=== PATIENT | female | born 1990 | race Caucasian/White ===

== ENCOUNTER 2018-10-12 13:49 | Emergency (ER) | payer OTHER ==
[~2018-10-12] VITALS: Ht 160 cm; Wt 65.8 kg
[2018-10-12 14:01] VITALS: BP_SYST 126
--- NOTE | 2018-10-12 14:10 | NUR ---
Patient to ER bed 8 to gown for evaluation. Side rails up.
--- NOTE | 2018-10-12 14:15 | NUR ---
WILLIE Thorne at bedside examining patient.
--- NOTE | 2018-10-12 14:25 | NUR ---
Xray at bedside
[2018-10-12] MEDS: HYDROcodone/ACETAMIN 5-325 MG TAB (NORCO/ VICODIN) PO ONE (14:40)
--- NOTE | 2018-10-12 14:40 | NUR ---
Pt medicated pt tolerated well.
[2018-10-12 15:30] VITALS: BP_SYST 126
--- NOTE | 2018-10-12 15:30 | NUR ---
Patient given written and verbal discharge instructions and verbalizes understanding. ER MD discussed with patient the results and treatment provided. Patient in stable condition. ID arm band removed. Rx of motrin given. Patient educated on pain management and to follow up with PMD. Pain Scale 2. Opportunity for questions provided and answered. Medication side effect fact sheet provided.
== END 2018-10-12 15:30 | disposition home or self-care (01) ==
LOC: SED 13:49
DX: S93.401A Sprain of unspecified ligament of right ankle, initial encounter (principal); R03.0 Elevated blood-pressure reading, without diagnosis of hypertension; W14.XXXA Fall from tree, initial encounter; Y93.89 Activity, other specified; Y92.89 Other specified places as the place of occurrence of the external cause; Y99.8 Other external cause status
CPT/HCPCS: 81025; 99283

== ENCOUNTER 2018-10-15 10:47 | Emergency (ER) | payer OTHER ==
[~2018-10-15] VITALS: Ht 160 cm; Wt 68.0 kg
[2018-10-15 10:51] VITALS: BP_SYST 134
[2018-10-15] MEDS ORDERED: HYDROcodone/ACETAMIN 5-325 MG TAB (NORCO/ VICODIN) PO ONE (11:30)
[2018-10-15 12:20] VITALS: BP_SYST 134
== END 2018-10-15 12:20 | disposition home or self-care (01) ==
LOC: SED 10:47
DX: S93.401D Sprain of unspecified ligament of right ankle, subsequent encounter (principal); W10.9XXA Fall (on) (from) unspecified stairs and steps, initial encounter; Y93.89 Activity, other specified; Y92.89 Other specified places as the place of occurrence of the external cause; Y99.8 Other external cause status
CPT/HCPCS: 99283

== ENCOUNTER 2018-11-10 20:04 | Emergency (ER) | payer OTHER ==
[~2018-11-10] VITALS: Ht 160 cm; Wt 68.0 kg
[2018-11-10 20:27] VITALS: BP_SYST 144
[2018-11-10] MEDS ORDERED: LORazepam 2 MG/ML VIAL (FOR ER USE) IVP ONE (20:45)
[2018-11-10] MEDS ORDERED: NACL 0.9% 1,000 ML IV ONE (20:45)
[2018-11-10 21:19] LABS: BASOPHILS # (AUTO) 0.1 K/uL (0.0-0.2); BASOPHILS % (AUTO) 0.7 % (0.0-2.0); EOSINOPHILS # (AUTO) 0.1 K/uL (0.0-0.4); HEMATOCRIT 42.4 % (36-48); LYMPHOCYTES # (AUTO) 2.1 K/uL (1.0-5.5); LYMPHOCYTES % (AUTO) 30.5 % (20.5-51.5); MEAN CORPUSCULAR HEMOGLOBIN 33 pg (27-31); MEAN CORPUSCULAR HGB CONC 35 % (32-36); MEAN CORPUSCULAR VOLUME 92 fL (79.0-98.0); MONOCYTES # (AUTO) 0.5 K/uL (0.0-1.0); MONOCYTES % (AUTO) 7.2 % (1.7-9.3); NEUTROPHILS # (AUTO) 4.2 K/uL (1.8-7.7); NEUTROPHILS % (AUTO) 60.6 % (40.0-70.0); PLATELET COUNT (AUTO) 199 K/uL (130-430); RED BLOOD CELL COUNT(AUTO) 4.62 MIL/uL (4.2-6.2); RED CELL DISTRIBUTION WIDTH 13.5 % (9.0-15.0)
[2018-11-10 21:33] LABS: CALCIUM 9.3 mg/dL (8.4-11.0); CREATININE 0.76 mg/dL (0.55-1.30); POTASSIUM 3.7 mmol/L (3.5-5.1)
[2018-11-10 22:25] VITALS: BP_SYST 138
== END 2018-11-10 22:25 | disposition home or self-care (01) ==
LOC: SED 20:04
DX: F10.239 Alcohol dependence with withdrawal, unspecified (principal); R03.0 Elevated blood-pressure reading, without diagnosis of hypertension
CPT/HCPCS: 36415; 80048; 85025; 96374; 99283; J2060; J7030

== ENCOUNTER 2019-08-07 10:12 | Inpatient (IN) | payer OTHER ==
[~2019-08-07] VITALS: Ht 160 cm; Wt 79.4 kg
[2019-08-07 10:39] VITALS: BP_SYST 131
--- NOTE | 2019-08-07 11:30 | NUR ---
Patient ambulated to the bathroom with a steady gait. Urine specimen collected and dropped off at the lab. Urine dip and preg done.
--- NOTE | 2019-08-07 11:39 | NUR ---
Patient to ER bed 05 to gown for evaluation. Side rails up.
--- NOTE | 2019-08-07 11:41 | NUR ---
Patient arrived in the ED c/o burning, frequency, cramping and back pain and pelvic pressure that started yesterday. Patient has already finished 2 courses of antibiotic. Patient denied any chest pain or shortness of breath. Denied any fevers, chills, nausea or vomiting. Patient is alert and oriented x4, respirations even and unlabored, speaking in full sentences, and ambulating with a steady gait. VSS, pain level 6/10. Informed of the approximate wait time. Instructed to notify ED staff for any changes in condition or worsening of symptoms. Patient verbalized understanding.
[2019-08-07] MEDS ORDERED: NACL 0.9% 1,000 ML IV ONE ×2 (11:59→13:30)
--- NOTE | 2019-08-07 12:05 | NUR ---
ER Dr. Mejias at bedside examining patient.
--- NOTE | 2019-08-07 12:18 | NUR ---
fire control technician at bedside collecting blood specimen as ordered by Dr. Mejias. Patient tolerated the procedure well.
[2019-08-07 12:28] LABS: BILIRUBIN,URINE NEGATIVE (NEGATIVE); BLOOD, URINE 3+ (NEGATIVE); CLARITY/URINE SL CLOUDY (CLEAR); COLOR,URINE ORANGE (YELLOW); GLUCOSE,URINE 1+ (NEGATIVE); KETONES,URINE 1+ (NEGATIVE); LEUKOCYTE ESTERASE ,URINE 2+ (NEGATIVE); NITRITE, URINE POSITIVE (NEGATIVE); PH,URINE 6.5 (5.0-8.0); PROTEIN URINE 2+ (NEGATIVE)
--- NOTE | 2019-08-07 12:32 | NUR ---
# 20 gauge angiocath placed to RAC. Use of asceptic technique. Opsite placed over site. Blood return noted. Flushed with 10 cc of normal saline. No evidence of infiltration noted. Patient tolerated well.
[2019-08-07 12:41] LABS: BACTERIA,URINE FEW /HPF (None Seen); RBC,URINE 20-50 /HPF (0-3); WBC,URINE 50-80 /HPF (0-3)
[2019-08-07 12:41] LABS: BASOPHILS # (AUTO) 0.1 K/uL (0.0-0.2); BASOPHILS % (AUTO) 1.1 % (0.0-2.0); EOSINOPHILS # (AUTO) 0.1 K/uL (0.0-0.4); EOSINOPHILS % (AUTO) 1.4 % (0.0-4.0); HEMATOCRIT 39.5 % (36-48); HEMOGLOBIN 13.2 g/dL (12.0-16.0); LYMPHOCYTES # (AUTO) 1.6 K/uL (1.0-5.5); LYMPHOCYTES % (AUTO) 17.8 % (20.5-51.5); MEAN CORPUSCULAR HEMOGLOBIN 32 pg (27-31); MEAN CORPUSCULAR HGB CONC 34 % (32-36); MEAN CORPUSCULAR VOLUME 94 fL (79.0-98.0); MONOCYTES # (AUTO) 0.6 K/uL (0.0-1.0); MONOCYTES % (AUTO) 6.9 % (1.7-9.3); NEUTROPHILS # (AUTO) 6.7 K/uL (1.8-7.7); NEUTROPHILS % (AUTO) 72.8 % (40.0-70.0); PLATELET COUNT (AUTO) 159 K/uL (130-430); RED BLOOD CELL COUNT(AUTO) 4.18 MIL/uL (4.2-6.2); RED CELL DISTRIBUTION WIDTH 13.5 % (9.0-15.0); WHITE BLOOD COUNT (AUTO) 9.1 K/uL (4.8-10.8)
[2019-08-07 12:52] LABS: CALCIUM 8.2 mg/dL (8.4-11.0); CREATININE 0.69 mg/dL (0.55-1.30)
[2019-08-07 13:11] LABS: ALBUMIN 3.4 g/dL (3.4-4.8); TOTAL BILIRUBIN 1.5 mg/dL (0.0-1.0)
[2019-08-07] MEDS ORDERED: cefTRIAXone 1 GM IVPB PREMIX 50 ML IV ONE (13:30)
--- NOTE | 2019-08-07 13:41 | NUR ---
Administered Rocephin IVPB and NS 1000mL IV as ordered by Dr. Mejias. Patient tolerated the medication well. See eMAR for details.
[2019-08-07] MEDS ORDERED: NACL 0.9% 2,000 ML IV ONE (14:30)
--- NOTE | 2019-08-07 15:25 | NUR ---
Patient will be admitted to care of Dr. Hurley. Admitted to [facility]. Will go to room 116A. Belongings list completed. Complete and up to date summary report printed. SBAR report given to JACQUELINE Fisher over the phone with opportunity for questions.
--- NOTE | 2019-08-07 15:29 | NUR ---
ADMISSION NOTE Received patient from ER via logan, received report from MELISSA PHILLIPS. Patient admitted with diagnosis of UTI/HEPATITIS. Patient oriented to hospital routine, call light, toileting and safety-patient verbalized understanding.
[2019-08-07 15:34] VITALS: BP_SYST 148
--- NOTE | 2019-08-07 16:00 | NUR ---
Dr. Hurley is informed about patient's current drinking habits. Orders are given, will be carried out.
[2019-08-07] MEDS ORDERED: D5/0.45 NS 1,000 ML IV SCH (16:06)
[2019-08-07 16:10] VITALS: BP_SYST 123
[2019-08-07] MEDS ORDERED: MULTIVITAMINS TAB 1 TABLET PO ONE (16:15)
[2019-08-07] MEDS ORDERED: ONDANSETRON HCL 4 MG/2 ML VIAL IVP PRN (16:15)
[2019-08-07] MEDS ORDERED: ACETAMINOPHEN 325 MG TABLET PO PRN (16:15)
[2019-08-07] MEDS ORDERED: LORazepam 2 MG/ML VIAL IVP PRN ×2 (16:15)
[2019-08-07] MEDS ORDERED: HYDROCHLOROTHIAZIDE 25 MG TABLET (HCTZ) PO ONE (16:15)
[2019-08-07] MEDS ORDERED: FOLIC ACID 1 MG TABLET PO ONE (16:15)
[2019-08-07] MEDS ORDERED: HYDROcodone/ACETAMIN 10-325 MG TAB PO PRN (16:15)
[2019-08-07] MEDS ORDERED: THIAMINE HCL 100 MG TABLET PO ONE (16:15)
[2019-08-07] MEDS ORDERED: cloNIDine HCL 0.1 MG TABLET PO PRN ×2 (16:15)
[2019-08-07] MEDS: D5/0.45 NS 1,000 ML IV SCH ×2 (16:23→23:11)
[2019-08-07] MEDS: HYDROcodone/ACETAMIN 5-325 MG TAB (NORCO/ VICODIN) PO PRN ×2 (16:41→22:15)
[2019-08-07] MEDS ORDERED: chlordiazePOXIDE HCL 25 MG CAPSULE PO SCH (17:00)
--- NOTE | 2019-08-07 18:28 | NUR ---
Patient has dinner. Tolerated without distress.
[2019-08-07 19:50] VITALS: BP_SYST 128
--- NOTE | 2019-08-07 19:50 | NUR ---
INITIAL NOTES PATIENT AMBULATED TO THE RESTROOM. PATIENT IS NOW LAYING IN BED AND STABLE. NO S/S OF RESPIRATORY DISTRESS NOTED. PLAN OF CARE WAS DISCUSSED WITH PATIENT AT THIS TIME. BED IS LOCKED, ALARMED, AND AT THE LOWEST POSITION. FALL,SAFETY, SEIZURE, RESPIRATORY, AND ASPIRATION PRECAUTIONS WILL BE IN PLACE THROUGHOUT THE SHIFT. PATIENT SUCCESSFULLY DEMONSTRATES USAGE OF CALL LIGHT AT THIS TIME.
[2019-08-07] MEDS: chlordiazePOXIDE HCL 25 MG CAPSULE PO SCH (20:22)
--- NOTE | 2019-08-07 21:50 | NUR ---
ROUNDING PATIENT IS LAYING IN BED AND STABLE. NO S/S OF RESPIRATORY DISTRESS NOTED. CALL LIGHT IN REACH. BED IS LOCKED, ALARMED, AND AT THE LOWEST POSITION. WILL CONTINUE TO MONITOR.
--- NOTE | 2019-08-07 22:00 | NUR ---
PATIENT IS NPO
[2019-08-08 00:01] VITALS: BP_SYST 122
--- NOTE | 2019-08-08 00:01 | NUR ---
ROUNDING PATIENT IS SLEEPING AND STABLE. NO S/S OF RESPIRATORY DISTRESS NOTED. CALL LIGHT IN REACH. BED IS LOCKED, ALARMED, AND AT THE LOWEST POSITION.
--- NOTE | 2019-08-08 02:00 | NUR ---
ROUNDING PATIENT IS SLEEPING IN BED AND STABLE. NO S/S OF RESPIRATORY DISTRESS NOTED. CALL LIGHT IN REACH. BED IS LOCKED, ALARMED,AND AT THE LOWEST POSITION.
[2019-08-08] MEDS: cefTRIAXone 1 GM in D5W 50 ML IV SCH (04:00)
--- NOTE | 2019-08-08 04:04 | NUR ---
ROUNDING PATIENT IS SLEEPING AND STABLE. NO S/S OF RESPIRATORY DISTRESS NOTED. CALL LIGHT IN REACH. BED IS LOCKED, ALARMED, AND AT THE LOWEST POSITION.
--- NOTE | 2019-08-08 06:15 | NUR ---
CLOSING NOTES PATIENT IS RESTING IN BED. PATIENT IS STABLE AND SHOWS NO S/S OF RESPIRATORY DISTRESS. CALL LIGHT IN REACH. BED IS LOCKED, ALARMED, AND AT THE LOWEST POSITION. FALL, SAFETY, ASPIRATION, RESPIRATORY, AND SEIZURE PRECAUTIONS HAS BEEN IN PLACE THROUGHOUT THE SHIFT. WILL CONTINUE TO MONITOR UNTIL REPORT IS GIVEN TO AM NURSE BY BEDSIDE.
[2019-08-08 08:00] VITALS: BP_SYST 118
--- NOTE | 2019-08-08 08:00 | NUR ---
initial notes rec patient asleep but arousable to stimuli. ivf infusing well on the r ac. no infiltration noted. denies pain. resp easy and unlabored.no sob noted. bed to the lowest position and side rails up and locked. call light within reached and knows when to call for assistance. npo maintained for ultrasound of the abdomen.
[2019-08-08 08:06] LABS: EOSINOPHILS # (AUTO) 0.2 K/uL (0.0-0.4); EOSINOPHILS % (AUTO) 6.3 % (0.0-4.0); HEMOGLOBIN 12.7 g/dL (12.0-16.0); LYMPHOCYTES # (AUTO) 1.6 K/uL (1.0-5.5); LYMPHOCYTES % (AUTO) 44.5 % (20.5-51.5); MEAN CORPUSCULAR HEMOGLOBIN 32 pg (27-31); MEAN CORPUSCULAR HGB CONC 34 % (32-36); MEAN CORPUSCULAR VOLUME 95 fL (79.0-98.0); MONOCYTES # (AUTO) 0.3 K/uL (0.0-1.0); MONOCYTES % (AUTO) 9.3 % (1.7-9.3); NEUTROPHILS # (AUTO) 1.4 K/uL (1.8-7.7); NEUTROPHILS % (AUTO) 38.9 % (40.0-70.0); PLATELET COUNT (AUTO) 140 K/uL (130-430); RED BLOOD CELL COUNT(AUTO) 3.98 MIL/uL (4.2-6.2); RED CELL DISTRIBUTION WIDTH 13.4 % (9.0-15.0); WHITE BLOOD COUNT (AUTO) 3.6 K/uL (4.8-10.8)
[2019-08-08 08:21] LABS: ALBUMIN 2.6 g/dL (3.4-4.8); CALCIUM 7.5 mg/dL (8.4-11.0); CREATININE 0.62 mg/dL (0.55-1.30); PHOSPHORUS 2.6 mg/dL (2.7-4.5); POTASSIUM 3.6 mmol/L (3.5-5.1); TOTAL BILIRUBIN 1.1 mg/dL (0.0-1.0)
[2019-08-08] MEDS: FOLIC ACID 1 MG TABLET PO SCH (09:39)
[2019-08-08] MEDS: MULTIVITAMINS TAB 1 TABLET PO SCH (09:39)
[2019-08-08] MEDS: HYDROCHLOROTHIAZIDE 25 MG TABLET (HCTZ) PO SCH (09:40)
[2019-08-08] MEDS: chlordiazePOXIDE HCL 25 MG CAPSULE PO SCH ×2 (09:41→21:19)
[2019-08-08] MEDS: THIAMINE HCL 100 MG TABLET PO SCH (09:41)
[2019-08-08] MEDS: D5/0.45 NS 1,000 ML IV SCH ×2 (09:43→20:58)
--- NOTE | 2019-08-08 10:00 | NUR ---
rounds due meds were given and leanna well. sleeps at intervals.call light within reached.
--- NOTE | 2019-08-08 12:00 | NUR ---
rounds pt with good appetite. call light within reached. no sob noted.
--- NOTE | 2019-08-08 16:00 | NUR ---
rounds seen by dr jimenez. no osb noted. call light within reached.
[2019-08-08] MEDS ORDERED: HYDROcodone/ACETAMIN 10-325 MG TAB PO PRN (17:15)
[2019-08-08] MEDS ORDERED: ONDANSETRON HCL 4 MG/2 ML VIAL IVP PRN (17:15)
[2019-08-08] MEDS ORDERED: ACETAMINOPHEN 325 MG TABLET PO PRN (17:15)
[2019-08-08] MEDS ORDERED: cefTRIAXone 1 GM IVPB PREMIX 50 ML IV SCH (17:30)
--- NOTE | 2019-08-08 18:38 | NUR ---
closing notes pt resting comfortably. denies pain. iv was dc/d. no sob noted. call light within reached. bed to the lowest position and side rails up and locked.
--- NOTE | 2019-08-08 19:40 | NUR ---
Pt is fully AAO x4 and resting comfortably in bed. No c/o pain or discomfort. No seizure activity noted. Saline lock in RAC is without any signs of infiltration. Fall and safety precautions are in place.
[2019-08-08 20:00] VITALS: BP_SYST 141
[2019-08-08] MEDS: NORMAL SALINE 5 ML DISP.SYRIN IVF SCH (21:22)
--- NOTE | 2019-08-08 21:22 | NUR ---
Scheduled HS medications and HS snacks given. Pt denies pain or discomfort.
[2019-08-08] MEDS ORDERED: NORMAL SALINE 5 ML DISP.SYRIN IVF SCH (22:00)
[2019-08-08] MEDS: HYDROcodone/ACETAMIN 5-325 MG TAB (NORCO/ VICODIN) PO PRN (23:00)
--- NOTE | 2019-08-08 23:00 | NUR ---
[place] 5/325mg 1 tablet was given po per pt's request for c/o menstrual pain in her pelvic area. Fall and safety precautions are in place.
--- NOTE | 2019-08-09 01:30 | NUR ---
Pt is sleeping comfortably in bed. Fall and safety precautions are in place.
--- NOTE | 2019-08-09 03:25 | NUR ---
Pt is sleeping without any respiratory distress noted. Call light is with pt and bed is in the lowest and locked positions.
[2019-08-09] MEDS: NORMAL SALINE 5 ML DISP.SYRIN IVF SCH ×3 (05:07→21:08)
[2019-08-09] MEDS: cefTRIAXone 1 GM in D5W 50 ML IV SCH (05:07)
--- NOTE | 2019-08-09 05:30 | NUR ---
Pt is resting comfortably in bed. Saline lock in RAC is patent and without any signs of infiltration. Fall and safety precautions are in place.
--- NOTE | 2019-08-09 06:29 | NUR ---
Pt is awake and resting comfortably in bed. Saline lock is intact in RAC. Fall and safety precautions are in place. Will endorse to day shift nurse.
[2019-08-09 07:12] LABS: BASOPHILS % (AUTO) 0.8 % (0.0-2.0); EOSINOPHILS # (AUTO) 0.2 K/uL (0.0-0.4); HEMATOCRIT 39.7 % (36-48); HEMOGLOBIN 13.3 g/dL (12.0-16.0); LYMPHOCYTES % (AUTO) 39.1 % (20.5-51.5); MEAN CORPUSCULAR HEMOGLOBIN 33 pg (27-31); MEAN CORPUSCULAR HGB CONC 34 % (32-36); MEAN CORPUSCULAR VOLUME 97 fL (79.0-98.0); MONOCYTES # (AUTO) 0.4 K/uL (0.0-1.0); MONOCYTES % (AUTO) 7.9 % (1.7-9.3); NEUTROPHILS # (AUTO) 2.5 K/uL (1.8-7.7); NEUTROPHILS % (AUTO) 48.2 % (40.0-70.0); PLATELET COUNT (AUTO) 155 K/uL (130-430); RED BLOOD CELL COUNT(AUTO) 4.09 MIL/uL (4.2-6.2); RED CELL DISTRIBUTION WIDTH 13.2 % (9.0-15.0); WHITE BLOOD COUNT (AUTO) 5.1 K/uL (4.8-10.8)
[2019-08-09 08:00] VITALS: BP_SYST 109
[2019-08-09 08:30] LABS: HEPATITIS A AB, IgM Negative (Negative); HEPATITIS B SURFACE AG Negative (Negative); HEPATITIS C VIRUS AB <0.1 s/co ratio (0.0-0.9)
[2019-08-09 08:35] LABS: CALCIUM 8.1 mg/dL (8.4-11.0); CREATININE 0.69 mg/dL (0.55-1.30); POTASSIUM 3.4 mmol/L (3.5-5.1)
[2019-08-09] MEDS: chlordiazePOXIDE HCL 25 MG CAPSULE PO SCH ×2 (08:49→20:56)
[2019-08-09] MEDS: HYDROCHLOROTHIAZIDE 25 MG TABLET (HCTZ) PO SCH (08:49)
[2019-08-09] MEDS: MULTIVITAMINS TAB 1 TABLET PO SCH (08:49)
[2019-08-09] MEDS: THIAMINE HCL 100 MG TABLET PO SCH (08:49)
[2019-08-09] MEDS: FOLIC ACID 1 MG TABLET PO SCH (08:49)
[2019-08-09] MEDS: HYDROcodone/ACETAMIN 5-325 MG TAB (NORCO/ VICODIN) PO PRN ×3 (08:50→21:04)
--- NOTE | 2019-08-09 10:00 | NUR ---
Patient stable, asked for [place], ate all of her breakfast. Vitals are stable. Rachel PHILLIPS
[2019-08-09 12:00] VITALS: BP_SYST 118
[2019-08-09] MEDS: LORazepam 2 MG/ML VIAL IVP PRN ×2 (14:54→23:45)
--- NOTE | 2019-08-09 15:09 | NUR ---
Patient stable, asked for Ativan and [place]. Per patients mom, she would like to see if her daughter can be sent to a rehab place for alcohol withdrawal program. I will contact nurse outreach case managerAristeo Ramos RN
[2019-08-09 16:00] VITALS: BP_SYST 125
[2019-08-09 19:30] VITALS: BP_SYST 130
--- NOTE | 2019-08-09 19:30 | NUR ---
OPENING NOTES Patient is resting, watching television, no signs of distress observed. . IV site patent, dressings c/d/i. Call light within reach, bed at lowest position. Bed alarm off, per patient's request after patient education on risks and benefits. Reoriented patient to call light use. Will continue to monitor.
--- NOTE | 2019-08-09 21:30 | NUR ---
Patient is resting, medications provided, patient tolerated well. Provided patient with orange juices and antony crackers. Will continue to monitor.
--- NOTE | 2019-08-09 22:18 | NUR ---
SPOKE TO DR. CHAN, CONFIRMED THAT PATIENT WILL NOT BE ON IVF, AND WILL BE SALINE LOCK.
--- NOTE | 2019-08-10 03:29 | NUR ---
Consultation Paged Reason for Consultation: Bradycardia Was consult called: Y Person who was notified: Herbert Consulting Physician: Solitario Callejas Lens Coater Ordering Physician: Nico Callejas
[2019-08-10] MEDS: cefTRIAXone 1 GM in D5W 50 ML IV SCH (05:06)
[2019-08-10] MEDS: NORMAL SALINE 5 ML DISP.SYRIN IVF SCH ×3 (05:11→21:45)
--- NOTE | 2019-08-10 07:08 | NUR ---
CLOSING NOTES Patient is resting, no signs of distress observed. IV site patent, dressings c/d/i. Call light within reach, bed alarm off after patient education and understanding, bed at lowest position. All needs met throughout shift. Will endorse care to oncoming shift.
[2019-08-10 07:32] LABS: ANION GAP 7 (5-15); CALCIUM 8.5 mg/dL (8.4-11.0); CHLORIDE 97 mmol/L (98-107); CREATININE 0.88 mg/dL (0.55-1.30); GLUCOSE 93 mg/dL (70-99); POTASSIUM 3.4 mmol/L (3.5-5.1); SODIUM SERUM 133 mmol/L (136-145); UREA NITROGEN, BLOOD 7 mg/dL (8-21)
[2019-08-10 07:33] LABS: C-REACTIVE PROTEIN QUANT < 0.2 mg/dL (0-0.5); GFR AFRICAN AMERICAN 96 mL/min (>90)
[2019-08-10 08:00] VITALS: BP_SYST 104
[2019-08-10 08:01] LABS: BASOPHILS % (AUTO) 0.6 % (0.0-2.0); EOSINOPHILS # (AUTO) 0.3 K/uL (0.0-0.4); EOSINOPHILS % (AUTO) 4.5 % (0.0-4.0); HEMATOCRIT 38.2 % (36-48); LYMPHOCYTES # (AUTO) 2.1 K/uL (1.0-5.5); LYMPHOCYTES % (AUTO) 37.1 % (20.5-51.5); MEAN CORPUSCULAR HEMOGLOBIN 33 pg (27-31); MEAN CORPUSCULAR HGB CONC 34 % (32-36); MEAN CORPUSCULAR VOLUME 98 fL (79.0-98.0); MONOCYTES # (AUTO) 0.6 K/uL (0.0-1.0); NEUTROPHILS # (AUTO) 2.6 K/uL (1.8-7.7); NEUTROPHILS % (AUTO) 46.8 % (40.0-70.0); PLATELET COUNT (AUTO) 160 K/uL (130-430); RED BLOOD CELL COUNT(AUTO) 3.92 MIL/uL (4.2-6.2); RED CELL DISTRIBUTION WIDTH 12.8 % (9.0-15.0); WHITE BLOOD COUNT (AUTO) 5.6 K/uL (4.8-10.8)
[2019-08-10 09:30] LABS: ERYTHROCYTE SEDIMENTATION RATE 7 MM/HR (0-20)
[2019-08-10] MEDS: HYDROCHLOROTHIAZIDE 25 MG TABLET (HCTZ) PO SCH (09:45)
[2019-08-10] MEDS: MULTIVITAMINS TAB 1 TABLET PO SCH (09:46)
[2019-08-10] MEDS: chlordiazePOXIDE HCL 25 MG CAPSULE PO SCH ×2 (09:46→21:44)
[2019-08-10] MEDS: THIAMINE HCL 100 MG TABLET PO SCH (09:46)
[2019-08-10] MEDS: FOLIC ACID 1 MG TABLET PO SCH (09:46)
[2019-08-10] MEDS ORDERED: POTASSIUM CHLORIDE 20 MEQ/PKT PACKET PO ONE (11:15)
--- NOTE | 2019-08-10 11:37 | NUR ---
SS NOTES: COLD ROLLING SUPERVISOR was referred by CM/nursing to see patient for DCPA and ETOH. Pt is a 29 y/o single female who came in via ED for UTI. Pt is cooperative with normal mood, normal speech, and average eye contact. Pt appears to be well groomed with appropriate affect. Pt rents a room in [place] and has two children (ages 8 and 9) and has shared custody with them. Pt has the children 4x/week. Pt states she drinks 15 bottle of beer a day for 2 years now with triggers as: in the family, stress, loss of a job and financial issues. Pt states her relationship with her family is " a little affected" by her alcohol use but receives support from her mom and her sister. Pt denies drinking while around her kids and denies any CPS involvement. Pt states she has a history of completing a detox admission at [facility] but failed to follow up with after care of IOP or PHP. Pt is interested in staring with PHP or IOP again. COLD ROLLING SUPERVISOR provided pt with Outpatient mental health and Substance abuse facilities. SS will remain available for additional resources and if needed.
[2019-08-10 12:00] VITALS: BP_SYST 110
[2019-08-10] MEDS: LORazepam 2 MG/ML VIAL IVP PRN (16:58)
--- NOTE | 2019-08-10 19:25 | NUR ---
CHANGE OF SHIFT; pt. awake, alert, moved to B bed, day shift nurse aware. no complaints. on seizure precautions. call light within reach. will reassess later.
[2019-08-10 20:00] VITALS: BP_SYST 134
--- NOTE | 2019-08-10 20:00 | NUR ---
NOTES: pt. resting , watching on her I pad. pt. ambulates to the restroom. IV lock on rt. antecubital. denies any pain nor discomfort at his time. moves all extremities well. seizure pads in place for precautions. VS checked. instructed to call nurse for help and verbalized understanding.
--- NOTE | 2019-08-10 21:00 | NUR ---
NOTES: pt. sleeping when checked, will come back for due medication.
--- NOTE | 2019-08-10 21:45 | NUR ---
NOTES: pt. awakened, due med given. no complaints. antony crackers and juice given per pt. request. IV site, redress with transparent dressing.
--- NOTE | 2019-08-11 | NUR ---
NOTES: pt. asleep when checked. no complaints noted.
--- NOTE | 2019-08-11 02:05 | NUR ---
NOTES: pt. sleeping when checked. condition unchanged.
--- NOTE | 2019-08-11 04:00 | NUR ---
NOTES: pt. been sleeping, no distress. continue to monitor. on seizure precautions.
[2019-08-11] MEDS: cefTRIAXone 1 GM in D5W 50 ML IV SCH (05:23)
--- NOTE | 2019-08-11 05:40 | NUR ---
NOTES: pt. awakened for due IV antibiotic. remain sleeping.
[2019-08-11] MEDS: NORMAL SALINE 5 ML DISP.SYRIN IVF SCH (06:00)
[2019-08-11 06:11] LABS: ANION GAP 5 (5-15); CALCIUM 8.5 mg/dL (8.4-11.0); CHLORIDE 98 mmol/L (98-107); CREATININE 0.81 mg/dL (0.55-1.30); GLUCOSE 93 mg/dL (70-99); POTASSIUM 3.2 mmol/L (3.5-5.1); SODIUM SERUM 132 mmol/L (136-145); UREA NITROGEN, BLOOD 8 mg/dL (8-21)
[2019-08-11 06:23] LABS: C-REACTIVE PROTEIN QUANT < 0.2 mg/dL (0-0.5); GFR AFRICAN AMERICAN 106 mL/min (>90)
--- NOTE | 2019-08-11 06:36 | NUR ---
CLOSING NOTES; IV antibiotic completed, IV site intact. no complaints of pain. still sleepy when checked. on seizure precautions. call light within reach. for further care and assistance. will endorse to day shift.
[2019-08-11 06:39] LABS: BASOPHILS % (AUTO) 0.8 % (0.0-2.0); EOSINOPHILS # (AUTO) 0.2 K/uL (0.0-0.4); EOSINOPHILS % (AUTO) 3.9 % (0.0-4.0); HEMATOCRIT 39.8 % (36-48); HEMOGLOBIN 13.4 g/dL (12.0-16.0); LYMPHOCYTES # (AUTO) 1.9 K/uL (1.0-5.5); LYMPHOCYTES % (AUTO) 32.6 % (20.5-51.5); MEAN CORPUSCULAR HEMOGLOBIN 33 pg (27-31); MEAN CORPUSCULAR HGB CONC 34 % (32-36); MEAN CORPUSCULAR VOLUME 98 fL (79.0-98.0); MONOCYTES # (AUTO) 0.8 K/uL (0.0-1.0); MONOCYTES % (AUTO) 13.3 % (1.7-9.3); NEUTROPHILS # (AUTO) 2.9 K/uL (1.8-7.7); NEUTROPHILS % (AUTO) 49.4 % (40.0-70.0); PLATELET COUNT (AUTO) 178 K/uL (130-430); RED BLOOD CELL COUNT(AUTO) 4.08 MIL/uL (4.2-6.2); RED CELL DISTRIBUTION WIDTH 13.1 % (9.0-15.0); WHITE BLOOD COUNT (AUTO) 5.8 K/uL (4.8-10.8)
--- NOTE | 2019-08-11 07:26 | NUR ---
Opening Note received bedside SBAR report from warehouse shift supervisor RN, patient resting in bed, respirations even and unlabored on room air, no acute distress noted, side rails padded, educated patient on use of call light and asked to call for assistance, patient verbalized understanding, call light in reach, educated patient on use of bed alarm for patient safety, patient refusing bed alarm, bed in low and locked position.
[2019-08-11 08:00] VITALS: BP_SYST 120
[2019-08-11] MEDS: chlordiazePOXIDE HCL 25 MG CAPSULE PO SCH (08:39)
[2019-08-11] MEDS: FOLIC ACID 1 MG TABLET PO SCH (08:40)
[2019-08-11] MEDS: MULTIVITAMINS TAB 1 TABLET PO SCH (08:41)
[2019-08-11] MEDS: HYDROCHLOROTHIAZIDE 25 MG TABLET (HCTZ) PO SCH (08:41)
[2019-08-11] MEDS: THIAMINE HCL 100 MG TABLET PO SCH (08:41)
[2019-08-11 08:43] LABS: ERYTHROCYTE SEDIMENTATION RATE 10 MM/HR (0-20)
--- NOTE | 2019-08-11 09:20 | NUR ---
RN Rounds patient resting in bed, no acute distress noted, patient denies any pain or nausea, no additional needs at this time.
[2019-08-11] MEDS ORDERED: LIB25 PO (11:27)
[2019-08-11] MEDS ORDERED: HCT25 PO (11:27)
[2019-08-11] MEDS ORDERED: FOLI-43 PO (11:27)
[2019-08-11] MEDS ORDERED: Multivitamins Tab PO (11:27)
[2019-08-11] MEDS ORDERED: CIPR-172 PO (11:27)
[2019-08-11] MEDS ORDERED: Thiamine Hcl PO (11:27)
[2019-08-11 11:35] VITALS: BP_SYST 133
--- NOTE | 2019-08-11 11:43 | NUR ---
Spoke with Physician/Pharmacy spoke with Dr. Odessa Hurley, informed him of patients potassium 3.2, new medication orders received, verified with telephone read back, per Dr. Odessa Hurley he would like patients pharmacy to call him for medication orders, called patients preferred pharmacy [facility] and they confirmed they will call Dr. Odessa Hurley, informed patient of orders for discharge home, per patient her mother Ivet will be in to pick her up for discharge home.
[2019-08-11] MEDS ORDERED: POTASSIUM CHLORIDE 20 MEQ TAB.PRT.SR PO ONE (11:45)
[2019-08-11 12:22] VITALS: BP_SYST 114
--- NOTE | 2019-08-11 12:27 | NUR ---
Called patients pharmacy called patients pharmacy [facility] , spoke with Melody, she stated that they received the prescription for the patients discharge medications but that it was sent to a different [facility] pharmacy, per Melody she will contact that [facility] and have the prescription sent to the patients preferred [facility] at [id number] [place] [address], per Melody they will be ready for reduction plant supervisor within one hour.
--- NOTE | 2019-08-11 12:52 | NUR ---
Discharge provided patient with discharge packet and instructions, patient verbalized understanding, IV catheter removed, catheter intact, no bleeding, respirations even and unlabored on room air, steady gait noted, patient denies any pain, all belongings sent with patient, patient accompanied by her grandmother for discharge home, patient taken to parking lot via wheelchair.
== END 2019-08-11 12:52 | disposition home or self-care (01) | DRG 720 ==
LOC: SED 10:12 → SMU 14:58
PROVIDERS: ADMIT Preventive Medicine Preventive Medicine/Occupational Environmental Medicine; ATTEND Preventive Medicine Preventive Medicine/Occupational Environmental Medicine
DX: A41.9 Sepsis, unspecified organism (principal); E87.2 Acidosis; E83.51 Hypocalcemia; N39.0 Urinary tract infection, site not specified; D64.9 Anemia, unspecified; E87.6 Hypokalemia; F10.10 Alcohol abuse, uncomplicated; K75.81 Nonalcoholic steatohepatitis (NASH); K70.30 Alcoholic cirrhosis of liver without ascites; B96.20 Unspecified Escherichia coli [E. coli] as the cause of diseases classified elsewhere; E66.9 Obesity, unspecified; E86.0 Dehydration; Z87.440 Personal history of urinary (tract) infections; Z79.899 Other long term (current) drug therapy; Z68.31 Body mass index [BMI] 31.0-31.9, adult
CPT/HCPCS: 36415; 76700-TC; 80048; 80053; 81000-TC; 83605; 83615-TC; 83690-TC; 83735-TC; 84100-TC; 85025; 85651-TC; 86140; 86709; 86803; 87040-TC; 87086; 87186-TC; 87340; 93306; 96361; 96365; 99285; J0696; J2060; J7060

== ENCOUNTER 2019-11-07 23:13 | Emergency (ER) | payer OTHER ==
[~2019-11-07] VITALS: Ht 160 cm; Wt 72.6 kg
[~2019-11-07 23:13] MED LIST: CIPR-172 PO; FOLI-43 PO; HCT25 PO; LIB25 PO; Multivitamins Tab PO; Thiamine Hcl PO
[2019-11-07 23:20] VITALS: BP_SYST 123
[2019-11-08 00:52] LABS: HEMOGLOBIN 13.5 g/dL (12.0-16.0); MEAN CORPUSCULAR HEMOGLOBIN 30 pg (27-31); MEAN CORPUSCULAR HGB CONC 34 % (32-36); MEAN CORPUSCULAR VOLUME 90 fL (79.0-98.0); PLATELET COUNT (AUTO) 303 K/uL (130-430); RED BLOOD CELL COUNT(AUTO) 4.46 MIL/uL (4.2-6.2); RED CELL DISTRIBUTION WIDTH 13.2 % (9.0-15.0); WHITE BLOOD COUNT (AUTO) 6.4 K/uL (4.8-10.8)
[2019-11-08 01:10] LABS: ANION GAP 9 (5-15); CALCIUM 7.9 mg/dL (8.4-11.0); CHLORIDE 105 mmol/L (98-107); CREATININE 0.89 mg/dL (0.55-1.30); GLUCOSE 94 mg/dL (70-99); POTASSIUM 3.6 mmol/L (3.5-5.1); SODIUM SERUM 141 mmol/L (136-145); UREA NITROGEN, BLOOD 2 mg/dL (8-21)
[2019-11-08 01:14] LABS: GFR AFRICAN AMERICAN 95 mL/min (>90)
[2019-11-08 01:29] LABS: ALANINE AMINOTRANSFERASE 83 U/L (12-78); ALBUMIN 3.4 g/dL (3.4-4.8); ALCOHOL, BLOOD 294 mg/dL (<10); ASPARTATE AMINOTRANSFERASE 75 U/L (10-37); FREE T4 (FREE THYROXINE) 1.3 ng/dl (0.8-1.5); TOTAL BILIRUBIN 0.2 mg/dL (0.0-1.0)
[2019-11-08 01:32] LABS: ACETAMINOPHEN < 1 ug/mL (1-30)
[2019-11-08] MEDS ORDERED: ONDANSETRON HCL 4 MG/2 ML VIAL IVP ONE ×2 (01:45→07:45)
[2019-11-08] MEDS ORDERED: KETOROLAC TROMETHAMINE 30 MG VIAL IVP ONE (01:45)
[2019-11-08] MEDS ORDERED: NACL 0.9% 1,000 ML IV ONE (01:45)
[2019-11-08 01:53] LABS: ATYPICAL LYMPHOCYTES % 5 % (0-0); BASOPHILS % (MANUAL) 0 % (0-2); EOSINOPHILS % (MANUAL) 2 % (0-7); LYMPHOCYTES % (MANUAL) 51 % (20-46); MONOCYTES % (MANUAL) 9 % (0-11)
[2019-11-08 02:02] LABS: BILIRUBIN,URINE NEGATIVE (NEGATIVE); BLOOD, URINE 3+ (NEGATIVE); COLOR,URINE YELLOW (YELLOW); GLUCOSE,URINE NEGATIVE (NEGATIVE); KETONES,URINE NEGATIVE (NEGATIVE); LEUKOCYTE ESTERASE ,URINE NEGATIVE (NEGATIVE); NITRITE, URINE NEGATIVE (NEGATIVE); PH,URINE 5.5 (5.0-8.0); PROTEIN URINE NEGATIVE (NEGATIVE); UROBILINOGEN,URINE 0.2 (0.2-1.0)
[2019-11-08 02:24] LABS: BARBITURATE, URINE NEGATIVE (NEG <=200); BENZODIAZEPINE, URINE POSITIVE (NEG <=150); METHAMPHETAMINES SCREEN,URINE NEGATIVE (NEG <=500); URINE AMPHETAMINE NEGATIVE (NEG <=500); URINE METHADONE NEGATIVE (NEG <=200)
[2019-11-08 02:25] LABS: CANNABINOID, URINE NEGATIVE (NEG <=50); COCAINE, URINE NEGATIVE (NEG <=150); OPIATE, URINE NEGATIVE (NEG <=100); PHENCYCLIDINE SCREEN,URINE NEGATIVE (NEG <=25); UR TRICYCLIC ANTIDEPRESSANTS NEGATIVE (NEG <=300); URINE OXYCODONE SCREEN NEGATIVE (NEG <=100); URINE PROPOXYPHENE SCREEN NEGATIVE (NEG <=300)
[2019-11-08 02:27] LABS: CLARITY/URINE SLIGHTLY CLOUDY (CLEAR)
[2019-11-08 02:31] LABS: BACTERIA,URINE FEW /HPF (None Seen); WBC,URINE 0-3 /HPF (0-3)
[2019-11-08] MEDS ORDERED: MAG HYDROX/AL HYDROX/SIMETH 30 ML, DICYCLOMINE HCL 20 MG, LIDOCAINE VISCOUS 2% 15ML (PO... PO ONE ×3 (09:30)
[2019-11-08] MEDS ORDERED: PROCHLORPERAZINE EDISYLATE 10 MG/2 ML VIAL IVP ONE (09:30)
[2019-11-08 10:24] VITALS: BP_SYST 119
== END 2019-11-08 10:24 | disposition home or self-care (01) ==
LOC: SED 23:13
DX: F32.9 Major depressive disorder, single episode, unspecified (principal); R45.851 Suicidal ideations; F10.229 Alcohol dependence with intoxication, unspecified; R10.10 Upper abdominal pain, unspecified; R11.10 Vomiting, unspecified; Y90.8 Blood alcohol level of 240 mg/100 ml or more
CPT/HCPCS: 36415; 80053; 80307; 81000; 81025; 82550; 83690; 84439; 84443; 85007; 85027; 93005; 96361; 96374; 96375; 96376; 99284; G0480; G0481; G0482; J0780; J1885; J2001; J2405; J7030

== ENCOUNTER 2020-05-21 10:52 | Emergency (ER) | payer OTHER ==
[~2020-05-21] VITALS: Ht 160 cm; Wt 68.0 kg
[~2020-05-21 10:52] MED LIST changes: -CIPR-172 PO; +CIPR250T4 PO
[2020-05-21 11:02] VITALS: BP_SYST 126
--- NOTE | 2020-05-21 11:02 | NUR ---
Patient to ER bed 04 to gown for evaluation. Side rails up. Report given to JACQUELINE FRANZ.
--- NOTE | 2020-05-21 11:05 | NUR ---
Pt came to ER for UTI symptoms, nausea, and ETOH withdrawls. She states she has between 15 and 20 drinks per day. Pt currently resting in [facility], c/o nausea, awaiting MD.
--- NOTE | 2020-05-21 11:25 | NUR ---
ER at bedside examining patient.
[2020-05-21] MEDS ORDERED: LORazepam 1 MG TABLET PO ONE (11:30)
[2020-05-21] MEDS ORDERED: ONDANSETRON 4 MG ODT TAB PO ONE (11:30)
--- NOTE | 2020-05-21 12:23 | NUR ---
Pt currently sleeping in [facility] no apparent distress
[2020-05-21 13:15] VITALS: BP_SYST 126
--- NOTE | 2020-05-21 13:16 | NUR ---
Patient given written and verbal discharge instructions and verbalizes understanding. ER MD discussed with patient the results and treatment provided. Patient in stable condition. ID arm band removed. IV catheter removed intact and dressing applied, no active bleeding. Rx of Zofran, Macrobid, Librium given. Patient educated on pain management and to follow up with PMD. Pain Scale 0/10. Opportunity for questions provided and answered. Medication side effect fact sheet provided.
== END 2020-05-21 13:15 | disposition home or self-care (01) ==
LOC: SED 10:52
DX: N39.0 Urinary tract infection, site not specified (principal); F10.239 Alcohol dependence with withdrawal, unspecified; Z79.899 Other long term (current) drug therapy
CPT/HCPCS: 99283; Q0162